=== PATIENT | male | born 2005 | race Caucasian/White ===

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

== ENCOUNTER 2025-05-18 20:08 | Emergency (ER) | payer BC ==
[2025-05-18] MEDS: diphenhydrAMINE 25 MG Cap PO ONE (20:31)
[2025-05-18] MEDS: diphenhydrAMINE 25 MG/10 ML Cup PO ONE (20:31)
[2025-05-18] MEDS ORDERED: methylPREDNISolone Sodium Succinate 40 MG/1 ML SDV ONE (20:33)
[2025-05-18] MEDS: methylPREDNISolone Sodium Succinate 40 MG/1 ML SDV IM ONE (20:38)
[2025-05-18] MEDS: diphenhydrAMINE 25 MG Cap ONE (20:40)
== END 2025-05-18 21:14 | disposition home or self-care (01) ==
LOC: KA.ED 20:08
DX: T78.1XXA Other adverse food reactions, not elsewhere classified, initial encounter (principal); Z91.018 Allergy to other foods
CPT/HCPCS: 96372; 99283; 99284; A9270-GY; J2919